=== PATIENT | male | born 1935 | race Caucasian/White ===

== ENCOUNTER 2017-08-03 11:28 | Inpatient (IN) | payer MEDICARE, OTHER ==
[2017-08-03 12:54] LABS: ADD MAN DIFF? NO
[2017-08-03] MEDS: NA PHOSPHATE/BIPHOS 133 ML ENEMA PR (12:58)
[2017-08-03 13:00] LABS: WHITE BLOOD COUNT 17.2 10^3/ul (4.8-10.8)
[2017-08-03 13:00] LABS: ABNORMAL IP MESSAGE 1; BASOPHILS % 0.2 % (0.0-2.0); EOSINOPHILS % 0.1 % (0.0-7.0); HEMOGLOBIN 15.6 g/dl (14.0-18.0); LYMPHOCYTES # 1.8 10^3/ul (0.8-2.9); LYMPHOCYTES % 10.2 % (15.0-51.0); MEAN CORPUSCULAR HEMOGLOBIN 29.8 pg (29.0-33.0); MEAN CORPUSCULAR HGB CONC 33.2 g/dl (32.0-37.0); MEAN CORPUSCULAR VOLUME 89.7 fl (82.0-101.0); MEAN PLATELET VOLUME 11.7 fl (7.4-10.4); MONOCYTE # 1.9 10^3/ul (0.3-0.9); MONOCYTES % 10.8 % (0.0-11.0); NEUTROPHIL # 13.4 10^3/ul (1.6-7.5); NEUTROPHILS % 78.2 % (39.0-77.0); PLATELET COUNT 171 10^3/UL (140-415); POSITIVE DIFF @See below; RED BLOOD COUNT 5.24 10^6/ul (4.70-6.10); RED CELL DISTRIBUTION WIDTH 12.8 % (11.5-14.5)
[2017-08-03 13:15] LABS: ALANINE AMINOTRANSFERASE 266 IU/L (13-69); ALBUMIN 4.2 g/dl (3.3-4.9); ALBUMIN/GLOBULIN RATIO 1.02; ALKALINE PHOSPHATASE 207 IU/L (42-121); ANION GAP 18 (8-16); ASPARTATE AMINO TRANSFERASE 246 IU/L (15-46); BILIRUBIN,INDIRECT 5.2 mg/dl (0-1.1); BLOOD UREA NITROGEN 26 mg/dl (7-20); CALCIUM 9.1 mg/dl (8.4-10.2); CARBON DIOXIDE 27 mmol/L (21-31); CHLORIDE 104 mmol/L (97-110); CREATININE 1.33 mg/dl (0.61-1.24); GLUCOSE 221 mg/dl (70-220); LIPASE 133 U/L (23-300); POTASSIUM 4.5 mmol/L (3.5-5.1); SODIUM 144 mmol/L (135-144); TOTAL PROTEIN 8.3 g/dl (6.1-8.1)
[2017-08-03 15:43] LABS: ADD UMIC YES; UR ASCORBIC ACID NEGATIVE (NEGATIVE); UR BACTERIA FEW /HPF (NONE SEEN); UR BILIRUBIN (Dip) 1+ mg/dL (NEGATIVE); UR BLOOD (Dip) NEGATIVE (NEGATIVE); UR CLARITY CLEAR (CLEAR); UR COLOR AMBER (YELLOW); UR GLUCOSE (Dip) 2+ mg/dL (NEGATIVE); UR KETONES (Dip) TRACE mg/dL (NEGATIVE); UR LEUKOCYTE ESTERASE (Dip) NEGATIVE Leu/ul (NEGATIVE); UR MUCUS FEW /HPF (NONE SEEN); UR NITRITE (Dip) NEGATIVE (NEGATIVE); UR RBC 1 /HPF (0-5); UR SPECIFIC GRAVITY (Dip) 1.027 (1.003-1.030); UR TOTAL PROTEIN (Dip) 1+ mg/dl (NEGATIVE); UR UROBILINOGEN (Dip) 2+ mg/dL (NEGATIVE); UR WBC 2 /HPF (0-5)
[2017-08-03] MEDS: MINERAL OIL 133 ML ENEMA PR (16:14)
[2017-08-03] MEDS: CEFTRIAXONE 1 GM/50 ML (PMX) 50 ML IVPB (17:41)
[2017-08-03] MEDS: metroNIDAZOLE 500 MG/NS (PMX) 100 ML IVPB ×2 (17:47→18:23)
[2017-08-03] MEDS ORDERED: ACETAMINOPHEN 325 MG TAB PO (18:30)
[2017-08-03] MEDS ORDERED: ONDANSETRON 4 MG INJ IV (18:30)
[2017-08-03] MEDS ORDERED: NACL 0.9% 3 ML SYG IV (18:30)
[2017-08-03] MEDS ORDERED: DEXTROSE 50% 50 ML SYRINGE IV ×2 (19:00)
[2017-08-03] MEDS ORDERED: hydrALAzine 20 MG INJ IV (19:00)
[2017-08-03] MEDS ORDERED: GLUCAGON 1 MG INJ IM (19:00)
[2017-08-03] MEDS ORDERED: GLUCOSE GEL 15 GRAM TUBE BUCCAL (19:00)
[2017-08-03] MEDS ORDERED: INSULIN ASPART [NOVOLOG] 3 ML PEN SC (19:00)
[2017-08-03] MEDS ORDERED: GLUCOSE GEL 15 GRAM TUBE PO ×2 (19:00)
[2017-08-03 19:15] LABS: THYROID STIMULATING HORMONE 0.324 MIU/L (0.465-4.680)
[2017-08-03 19:19] LABS: FREE T4 (FREE THYROXINE) 2.31 ng/dl (0.85-1.93)
[2017-08-03] MEDS: SOD CHLORIDE 0.9% 1,000 ML IV (19:51)
[2017-08-03] MEDS ORDERED: ATORVASTATIN 40 MG TAB PO (21:00)
[2017-08-03] MEDS: Insulin NOVOLOG SS MILD Algorithm (NPO/TPN/ENTERAL FEEDS) SC (21:00)
[2017-08-03] MEDS: INSULIN GLARGINE [LANtus] 3 ML PEN SC ×3 (22:24→23:35)
[2017-08-03] MEDS: PIPER-TAZO 3.375 GM IV (PMX) 100 ML IVPB (22:44)
[2017-08-04] MEDS: Insulin NOVOLOG SS MILD Algorithm (NPO/TPN/ENTERAL FEEDS) SC ×6 (01:00→20:51)
[2017-08-04] MEDS: PIPER-TAZO 3.375 GM IV (PMX) 100 ML IVPB ×3 (05:07→21:44)
[2017-08-04 06:00] LABS: ADD MAN DIFF? NO
[2017-08-04 06:17] LABS: WHITE BLOOD COUNT 13.5 10^3/ul (4.8-10.8)
[2017-08-04 06:17] LABS: ABNORMAL IP MESSAGE 1; BASOPHILS % 0.1 % (0.0-2.0); EOSINOPHILS % 0.3 % (0.0-7.0); HEMATOCRIT 43.6 % (42.0-52.0); HEMOGLOBIN 14.7 g/dl (14.0-18.0); LYMPHOCYTES # 1.7 10^3/ul (0.8-2.9); LYMPHOCYTES % 12.6 % (15.0-51.0); MEAN CORPUSCULAR HEMOGLOBIN 30.1 pg (29.0-33.0); MEAN CORPUSCULAR HGB CONC 33.7 g/dl (32.0-37.0); MEAN CORPUSCULAR VOLUME 89.2 fl (82.0-101.0); MEAN PLATELET VOLUME 11.7 fl (7.4-10.4); MONOCYTE # 1.7 10^3/ul (0.3-0.9); MONOCYTES % 12.7 % (0.0-11.0); NEUTROPHIL # 9.9 10^3/ul (1.6-7.5); NEUTROPHILS % 73.4 % (39.0-77.0); PLATELET COUNT 154 10^3/UL (140-415); POSITIVE DIFF @See below; RED BLOOD COUNT 4.89 10^6/ul (4.70-6.10); RED CELL DISTRIBUTION WIDTH 12.8 % (11.5-14.5)
[2017-08-04 06:27] LABS: LACTIC ACID 1.2 mmol/L (0.5-2.0)
[2017-08-04 06:27] LABS: INR 1.33; PROTIME 16.7 Sec (11.9-14.9); PT RATIO 1.3
[2017-08-04 06:28] LABS: PARTIAL THROMBOPLASTIN TIME 35.1 Sec (25.0-35.0)
[2017-08-04 06:43] LABS: ALANINE AMINOTRANSFERASE 207 IU/L (13-69); ALBUMIN 3.3 g/dl (3.3-4.9); ALBUMIN/GLOBULIN RATIO 1.03; ALKALINE PHOSPHATASE 179 IU/L (42-121); ANION GAP 17 (8-16); ASPARTATE AMINO TRANSFERASE 136 IU/L (15-46); BLOOD UREA NITROGEN 22 mg/dl (7-20); CALCIUM 8.4 mg/dl (8.4-10.2); CARBON DIOXIDE 25 mmol/L (21-31); CHLORIDE 111 mmol/L (97-110); CREATININE 1.37 mg/dl (0.61-1.24); GLUCOSE 111 mg/dl (70-220); POTASSIUM 3.7 mmol/L (3.5-5.1); SODIUM 149 mmol/L (135-144); TOTAL PROTEIN 6.5 g/dl (6.1-8.1)
[2017-08-04 06:44] LABS: CHOL/HDL RATIO 2.2 RATIO; CHOLESTEROL 105 mg/dl (100-200); HDL CHOLESTEROL 46 mg/dl (31-75); LDL CHOLESTEROL,CALCULATED 46 mg/dl; MAGNESIUM 2.1 mg/dl (1.7-2.5); TRIGLYCERIDES 67 mg/dl (0-149)
[2017-08-04] MEDS: POTASSIUM CHLORIDE (SR) 10 MEQ TAB PO (09:11)
[2017-08-04] MEDS: ATENOLOL 50 MG TAB PO (09:12)
[2017-08-04] MEDS: FUROSEMIDE 40 MG TAB PO (09:12)
[2017-08-04] MEDS: MEMANTINE 10 MG TAB PO (09:12)
[2017-08-04] MEDS: TAMSULOSIN (SR) 0.4 MG CAP PO (09:12)
[2017-08-04] MEDS: SOD CHLORIDE 0.9% 1,000 ML IV ×2 (11:09→14:11)
[2017-08-04] MEDS: INDOMETHACIN 50 MG SUPP PR (15:30)
[2017-08-04] MEDS: INSULIN GLARGINE [LANtus] 3 ML PEN SC (20:51)
[2017-08-05] MEDS: Insulin NOVOLOG SS MILD Algorithm (NPO/TPN/ENTERAL FEEDS) SC ×6 (01:00→20:09)
[2017-08-05] MEDS: PIPER-TAZO 3.375 GM IV (PMX) 100 ML IVPB ×3 (05:31→20:13)
[2017-08-05] MEDS ORDERED: METOCLOPRAMIDE 10 MG INJ (07:00)
[2017-08-05] MEDS: SOD CHLORIDE 0.9% 1,000 ML IV ×2 (07:47→19:25)
[2017-08-05] MEDS: POTASSIUM CHLORIDE (SR) 10 MEQ TAB PO (08:09)
[2017-08-05] MEDS: TAMSULOSIN (SR) 0.4 MG CAP PO (08:09)
[2017-08-05] MEDS: FUROSEMIDE 40 MG TAB PO (08:10)
[2017-08-05] MEDS: ATENOLOL 50 MG TAB PO (08:10)
[2017-08-05] MEDS: MEMANTINE 10 MG TAB PO (08:10)
[2017-08-05] MEDS: INDOMETHACIN 50 MG SUPP PR (12:00)
[2017-08-05] MEDS ORDERED: MIDAZOLAM 1 MG/ML 2 ML INJ (12:12)
[2017-08-05] MEDS ORDERED: FENTAnyl 50 MCG/ML VIAL (12:12)
[2017-08-05] MEDS ORDERED: PROPOFOL 0 ML (12:12)
[2017-08-05] MEDS ORDERED: ONDANSETRON 4 MG INJ (12:13)
[2017-08-05] MEDS ORDERED: ROCURONIUM 50 MG INJ ×2 (12:16→12:54)
[2017-08-05] MEDS ORDERED: ETOMIDATE 20 MG INJ (12:54)
[2017-08-05] MEDS ORDERED: NEOSTIGMINE 3 MG/3 ML SYRINGE (12:54)
[2017-08-05] MEDS ORDERED: EPHEDrine SULFATE 50 MG/5 ML SYG (12:55)
[2017-08-05] MEDS ORDERED: ONDANSETRON 4 MG INJ IV (13:30)
[2017-08-05 16:43] LABS: ALANINE AMINOTRANSFERASE 193 IU/L (13-69); ALBUMIN 3.8 g/dl (3.3-4.9); ALBUMIN/GLOBULIN RATIO 0.97; ALKALINE PHOSPHATASE 289 IU/L (42-121); ANION GAP 21 (8-16); ASPARTATE AMINO TRANSFERASE 145 IU/L (15-46); BILIRUBIN,INDIRECT 2.4 mg/dl (0-1.1); BILIRUBIN,TOTAL 2.4 mg/dl (0.2-1.3); BLOOD UREA NITROGEN 24 mg/dl (7-20); CALCIUM 8.7 mg/dl (8.4-10.2); CARBON DIOXIDE 23 mmol/L (21-31); CHLORIDE 111 mmol/L (97-110); CREATININE 1.44 mg/dl (0.61-1.24); GLUCOSE 149 mg/dl (70-220); POTASSIUM 4.5 mmol/L (3.5-5.1); SODIUM 150 mmol/L (135-144); TOTAL PROTEIN 7.7 g/dl (6.1-8.1)
[2017-08-05] MEDS: INSULIN GLARGINE [LANtus] 3 ML PEN SC (20:08)
[2017-08-05] MEDS: DEXTROSE 5% 1,000 ML IV (22:44)
[2017-08-06] MEDS: ACCU-CHEK XX (02:00)
[2017-08-06 05:49] LABS: ADD MAN DIFF? NO
[2017-08-06 05:57] LABS: WHITE BLOOD COUNT 9.1 10^3/ul (4.8-10.8)
[2017-08-06 05:57] LABS: BASOPHILS % 0.2 % (0.0-2.0); EOSINOPHILS # 0.1 10^3/ul (0.0-0.5); EOSINOPHILS % 0.9 % (0.0-7.0); HEMATOCRIT 40.2 % (42.0-52.0); HEMOGLOBIN 13.4 g/dl (14.0-18.0); LYMPHOCYTES # 1.6 10^3/ul (0.8-2.9); LYMPHOCYTES % 17.5 % (15.0-51.0); MEAN CORPUSCULAR HEMOGLOBIN 29.8 pg (29.0-33.0); MEAN CORPUSCULAR HGB CONC 33.3 g/dl (32.0-37.0); MEAN CORPUSCULAR VOLUME 89.5 fl (82.0-101.0); MEAN PLATELET VOLUME 11.8 fl (7.4-10.4); MONOCYTE # 1.3 10^3/ul (0.3-0.9); MONOCYTES % 13.9 % (0.0-11.0); NEUTROPHIL # 6.1 10^3/ul (1.6-7.5); NEUTROPHILS % 67.1 % (39.0-77.0); PLATELET COUNT 159 10^3/UL (140-415); RED BLOOD COUNT 4.49 10^6/ul (4.70-6.10); RED CELL DISTRIBUTION WIDTH 12.7 % (11.5-14.5)
[2017-08-06 06:09] LABS: LIPASE 98 U/L (23-300)
[2017-08-06] MEDS: PIPER-TAZO 3.375 GM IV (PMX) 100 ML IVPB ×3 (06:42→21:58)
[2017-08-06 06:44] LABS: ANION GAP 12 (8-16); BLOOD UREA NITROGEN 18 mg/dl (7-20); CALCIUM 7.9 mg/dl (8.4-10.2); CARBON DIOXIDE 27 mmol/L (21-31); CHLORIDE 111 mmol/L (97-110); CREATININE 1.14 mg/dl (0.61-1.24); GLUCOSE 152 mg/dl (70-220); POTASSIUM 3.7 mmol/L (3.5-5.1); SODIUM 146 mmol/L (135-144)
[2017-08-06] MEDS: INSULIN ASPART [NOVOLOG] 3 ML PEN SC ×4 (07:54→20:41)
[2017-08-06] MEDS: FUROSEMIDE 40 MG TAB PO (08:56)
[2017-08-06] MEDS: ATENOLOL 50 MG TAB PO (08:57)
[2017-08-06] MEDS: POTASSIUM CHLORIDE (SR) 10 MEQ TAB PO (09:09)
[2017-08-06] MEDS: TAMSULOSIN (SR) 0.4 MG CAP PO (09:09)
[2017-08-06] MEDS: MEMANTINE 10 MG TAB PO (09:09)
[2017-08-06] MEDS: DEXTROSE 5% 1,000 ML IV (13:45)
[2017-08-06 19:00] LABS: TROPONIN-I < 0.012 ng/ml (0.00-0.12)
[2017-08-06] MEDS: INSULIN GLARGINE [LANtus] 3 ML PEN SC (20:38)
[2017-08-07] MEDS: ACCU-CHEK XX (02:00)
[2017-08-07 02:05] LABS: TROPONIN-I 0.014 ng/ml (0.00-0.12)
[2017-08-07] MEDS: PIPER-TAZO 3.375 GM IV (PMX) 100 ML IVPB ×3 (06:10→22:05)
[2017-08-07 07:14] LABS: ADD MAN DIFF? NO
[2017-08-07 07:19] LABS: BASOPHILS % 0.2 % (0.0-2.0); EOSINOPHILS # 0.1 10^3/ul (0.0-0.5); EOSINOPHILS % 1.1 % (0.0-7.0); HEMATOCRIT 41.9 % (42.0-52.0); HEMOGLOBIN 14.2 g/dl (14.0-18.0); LYMPHOCYTES # 2.3 10^3/ul (0.8-2.9); LYMPHOCYTES % 25.7 % (15.0-51.0); MEAN CORPUSCULAR HGB CONC 33.9 g/dl (32.0-37.0); MEAN CORPUSCULAR VOLUME 88.6 fl (82.0-101.0); MEAN PLATELET VOLUME 11.7 fl (7.4-10.4); MONOCYTE # 1.2 10^3/ul (0.3-0.9); MONOCYTES % 13.5 % (0.0-11.0); NEUTROPHIL # 5.2 10^3/ul (1.6-7.5); NEUTROPHILS % 59.2 % (39.0-77.0); PLATELET COUNT 168 10^3/UL (140-415); RED BLOOD COUNT 4.73 10^6/ul (4.70-6.10); RED CELL DISTRIBUTION WIDTH 12.3 % (11.5-14.5)
[2017-08-07 07:19] LABS: WHITE BLOOD COUNT 8.7 10^3/ul (4.8-10.8)
[2017-08-07 07:37] LABS: ALANINE AMINOTRANSFERASE 109 IU/L (13-69); ALBUMIN 3.2 g/dl (3.3-4.9); ALKALINE PHOSPHATASE 209 IU/L (42-121); ASPARTATE AMINO TRANSFERASE 49 IU/L (15-46); TOTAL PROTEIN 6.6 g/dl (6.1-8.1)
[2017-08-07 07:42] LABS: ANION GAP 15 (8-16); BLOOD UREA NITROGEN 10 mg/dl (7-20); CALCIUM 8.4 mg/dl (8.4-10.2); CARBON DIOXIDE 26 mmol/L (21-31); CHLORIDE 107 mmol/L (97-110); CREATININE 1.16 mg/dl (0.61-1.24); GLUCOSE 219 mg/dl (70-220); MAGNESIUM 1.9 mg/dl (1.7-2.5); PHOSPHORUS 2.9 mg/dl (2.5-4.9); POTASSIUM 3.7 mmol/L (3.5-5.1); SODIUM 144 mmol/L (135-144)
[2017-08-07 07:48] LABS: TROPONIN-I 0.016 ng/ml (0.00-0.12)
[2017-08-07] MEDS: DEXTROSE 5% 1,000 ML IV (08:26)
[2017-08-07] MEDS: INSULIN ASPART [NOVOLOG] 3 ML PEN SC ×4 (08:31→20:25)
[2017-08-07] MEDS: TAMSULOSIN (SR) 0.4 MG CAP PO (09:16)
[2017-08-07] MEDS: MEMANTINE 10 MG TAB PO (09:16)
[2017-08-07] MEDS: ATENOLOL 50 MG TAB PO (09:16)
[2017-08-07] MEDS: POTASSIUM CHLORIDE (SR) 10 MEQ TAB PO (09:16)
[2017-08-07] MEDS: FUROSEMIDE 40 MG TAB PO (09:16)
[2017-08-07] MEDS: REGADENOSON 0.4 MG/5 ML SYG (11:52)
[2017-08-07] MEDS: INSULIN GLARGINE [LANtus] 3 ML PEN SC (20:25)
[2017-08-08] MEDS: ACCU-CHEK XX (01:25)
[2017-08-08] MEDS: PIPER-TAZO 3.375 GM IV (PMX) 100 ML IVPB ×3 (05:41→21:47)
[2017-08-08 06:29] LABS: ADD MAN DIFF? NO
[2017-08-08 06:33] LABS: BASOPHILS % 0.3 % (0.0-2.0); EOSINOPHILS # 0.1 10^3/ul (0.0-0.5); EOSINOPHILS % 1.7 % (0.0-7.0); HEMATOCRIT 41.8 % (42.0-52.0); HEMOGLOBIN 13.9 g/dl (14.0-18.0); LYMPHOCYTES % 25.7 % (15.0-51.0); MEAN CORPUSCULAR HEMOGLOBIN 29.3 pg (29.0-33.0); MEAN CORPUSCULAR HGB CONC 33.3 g/dl (32.0-37.0); MEAN CORPUSCULAR VOLUME 88.2 fl (82.0-101.0); MEAN PLATELET VOLUME 11.5 fl (7.4-10.4); MONOCYTE # 1.1 10^3/ul (0.3-0.9); NEUTROPHIL # 4.3 10^3/ul (1.6-7.5); PLATELET COUNT 176 10^3/UL (140-415); RED BLOOD COUNT 4.74 10^6/ul (4.70-6.10)
[2017-08-08 06:33] LABS: WHITE BLOOD COUNT 7.6 10^3/ul (4.8-10.8)
[2017-08-08 06:58] LABS: MAGNESIUM 1.7 mg/dl (1.7-2.5)
[2017-08-08 07:00] LABS: ALANINE AMINOTRANSFERASE 96 IU/L (13-69); ALBUMIN 3.2 g/dl (3.3-4.9); ALBUMIN/GLOBULIN RATIO 0.96; ALKALINE PHOSPHATASE 176 IU/L (42-121); ANION GAP 12 (8-16); ASPARTATE AMINO TRANSFERASE 49 IU/L (15-46); BILIRUBIN,INDIRECT 1.3 mg/dl (0-1.1); BILIRUBIN,TOTAL 1.3 mg/dl (0.2-1.3); BLOOD UREA NITROGEN 12 mg/dl (7-20); CALCIUM 8.4 mg/dl (8.4-10.2); CARBON DIOXIDE 32 mmol/L (21-31); CHLORIDE 108 mmol/L (97-110); CREATININE 1.44 mg/dl (0.61-1.24); GLUCOSE 181 mg/dl (70-220); POTASSIUM 3.8 mmol/L (3.5-5.1); SODIUM 148 mmol/L (135-144); TOTAL PROTEIN 6.5 g/dl (6.1-8.1)
[2017-08-08] MEDS: TAMSULOSIN (SR) 0.4 MG CAP PO (08:07)
[2017-08-08] MEDS: INSULIN ASPART [NOVOLOG] 3 ML PEN SC ×5 (08:07→20:22)
[2017-08-08] MEDS: FUROSEMIDE 40 MG TAB PO (08:07)
[2017-08-08] MEDS: MEMANTINE 10 MG TAB PO (08:07)
[2017-08-08] MEDS: POTASSIUM CHLORIDE (SR) 10 MEQ TAB PO (08:07)
[2017-08-08] MEDS: ATENOLOL 50 MG TAB PO (08:08)
[2017-08-08] MEDS: INSULIN GLARGINE [LANtus] 3 ML PEN SC (20:21)
[2017-08-09] MEDS: ACCU-CHEK XX (02:00)
[2017-08-09 06:06] LABS: ADD MAN DIFF? NO
[2017-08-09 06:07] LABS: BASOPHILS % 0.3 % (0.0-2.0); EOSINOPHILS # 0.2 10^3/ul (0.0-0.5); EOSINOPHILS % 1.8 % (0.0-7.0); HEMATOCRIT 38.2 % (42.0-52.0); HEMOGLOBIN 12.7 g/dl (14.0-18.0); LYMPHOCYTES # 2.1 10^3/ul (0.8-2.9); LYMPHOCYTES % 21.5 % (15.0-51.0); MEAN CORPUSCULAR HEMOGLOBIN 29.6 pg (29.0-33.0); MEAN CORPUSCULAR HGB CONC 33.2 g/dl (32.0-37.0); MEAN PLATELET VOLUME 11.4 fl (7.4-10.4); MONOCYTE # 1.2 10^3/ul (0.3-0.9); MONOCYTES % 12.1 % (0.0-11.0); NEUTROPHIL # 6.3 10^3/ul (1.6-7.5); PLATELET COUNT 179 10^3/UL (140-415); RED BLOOD COUNT 4.29 10^6/ul (4.70-6.10); RED CELL DISTRIBUTION WIDTH 12.4 % (11.5-14.5)
[2017-08-09 06:07] LABS: WHITE BLOOD COUNT 9.8 10^3/ul (4.8-10.8)
[2017-08-09] MEDS: PIPER-TAZO 3.375 GM IV (PMX) 100 ML IVPB ×3 (06:07→21:45)
[2017-08-09 06:35] LABS: MAGNESIUM 1.7 mg/dl (1.7-2.5)
[2017-08-09 06:50] LABS: ALANINE AMINOTRANSFERASE 83 IU/L (13-69); ALBUMIN 3.1 g/dl (3.3-4.9); ALBUMIN/GLOBULIN RATIO 0.91; ALKALINE PHOSPHATASE 149 IU/L (42-121); ANION GAP 12 (8-16); ASPARTATE AMINO TRANSFERASE 36 IU/L (15-46); BILIRUBIN,INDIRECT 0.8 mg/dl (0-1.1); BILIRUBIN,TOTAL 0.8 mg/dl (0.2-1.3); BLOOD UREA NITROGEN 15 mg/dl (7-20); CALCIUM 8.4 mg/dl (8.4-10.2); CARBON DIOXIDE 29 mmol/L (21-31); CHLORIDE 109 mmol/L (97-110); CREATININE 1.36 mg/dl (0.61-1.24); GLUCOSE 178 mg/dl (70-220); POTASSIUM 3.8 mmol/L (3.5-5.1); SODIUM 146 mmol/L (135-144); TOTAL PROTEIN 6.5 g/dl (6.1-8.1)
[2017-08-09] MEDS: FUROSEMIDE 40 MG TAB PO (08:04)
[2017-08-09] MEDS: MEMANTINE 10 MG TAB PO (08:04)
[2017-08-09] MEDS: TAMSULOSIN (SR) 0.4 MG CAP PO (08:05)
[2017-08-09] MEDS: POTASSIUM CHLORIDE (SR) 10 MEQ TAB PO (08:05)
[2017-08-09] MEDS: ATENOLOL 50 MG TAB PO (08:05)
[2017-08-09] MEDS: INSULIN ASPART [NOVOLOG] 3 ML PEN SC ×7 (08:06→20:27)
[2017-08-09] MEDS: INSULIN GLARGINE [LANtus] 3 ML PEN SC (20:27)
[2017-08-10] MEDS: ACCU-CHEK XX (02:00)
[2017-08-10] MEDS: PIPER-TAZO 3.375 GM IV (PMX) 100 ML IVPB ×3 (05:34→21:02)
[2017-08-10 06:51] LABS: ALANINE AMINOTRANSFERASE 70 IU/L (13-69); ALBUMIN 3.6 g/dl (3.3-4.9); ALBUMIN/GLOBULIN RATIO 1.02; ALKALINE PHOSPHATASE 142 IU/L (42-121); ANION GAP 14 (8-16); ASPARTATE AMINO TRANSFERASE 37 IU/L (15-46); BILIRUBIN,INDIRECT 0.9 mg/dl (0-1.1); BILIRUBIN,TOTAL 0.9 mg/dl (0.2-1.3); BLOOD UREA NITROGEN 15 mg/dl (7-20); CALCIUM 8.5 mg/dl (8.4-10.2); CARBON DIOXIDE 29 mmol/L (21-31); CHLORIDE 108 mmol/L (97-110); CREATININE 1.37 mg/dl (0.61-1.24); GLUCOSE 157 mg/dl (70-220); POTASSIUM 4.3 mmol/L (3.5-5.1); SODIUM 147 mmol/L (135-144); TOTAL PROTEIN 7.1 g/dl (6.1-8.1)
[2017-08-10 08:01] LABS: MAGNESIUM 1.7 mg/dl (1.7-2.5)
[2017-08-10] MEDS: INSULIN ASPART [NOVOLOG] 3 ML PEN SC ×7 (08:03→21:00)
[2017-08-10] MEDS: TAMSULOSIN (SR) 0.4 MG CAP PO (08:05)
[2017-08-10] MEDS: POTASSIUM CHLORIDE (SR) 10 MEQ TAB PO (08:05)
[2017-08-10] MEDS: MEMANTINE 10 MG TAB PO (08:05)
[2017-08-10] MEDS: ATENOLOL 50 MG TAB PO (08:06)
[2017-08-10] MEDS: FUROSEMIDE 40 MG TAB PO (08:06)
[2017-08-10] MEDS: INSULIN GLARGINE [LANtus] 3 ML PEN SC (21:02)
[2017-08-11] MEDS: ACCU-CHEK XX (01:59)
[2017-08-11] MEDS: PIPER-TAZO 3.375 GM IV (PMX) 100 ML IVPB ×3 (05:46→21:24)
[2017-08-11 06:25] LABS: ADD MAN DIFF? NO
[2017-08-11 06:26] LABS: BASOPHILS % 0.2 % (0.0-2.0); EOSINOPHILS # 0.2 10^3/ul (0.0-0.5); EOSINOPHILS % 2.9 % (0.0-7.0); HEMATOCRIT 41.3 % (42.0-52.0); HEMOGLOBIN 13.9 g/dl (14.0-18.0); LYMPHOCYTES % 24.5 % (15.0-51.0); MEAN CORPUSCULAR HGB CONC 33.7 g/dl (32.0-37.0); MEAN PLATELET VOLUME 11.2 fl (7.4-10.4); MONOCYTES % 12.1 % (0.0-11.0); NEUTROPHIL # 4.8 10^3/ul (1.6-7.5); NEUTROPHILS % 59.9 % (39.0-77.0); PLATELET COUNT 216 10^3/UL (140-415); RED BLOOD COUNT 4.64 10^6/ul (4.70-6.10); RED CELL DISTRIBUTION WIDTH 12.2 % (11.5-14.5)
[2017-08-11] MEDS: DEXTROSE 5%-0.45% NACL 1,000 ML IV ×2 (06:26→18:41)
[2017-08-11 06:53] LABS: ANION GAP 13 (8-16); BLOOD UREA NITROGEN 16 mg/dl (7-20); CALCIUM 8.9 mg/dl (8.4-10.2); CARBON DIOXIDE 31 mmol/L (21-31); CHLORIDE 107 mmol/L (97-110); CREATININE 1.23 mg/dl (0.61-1.24); GLUCOSE 106 mg/dl (70-220); MAGNESIUM 1.7 mg/dl (1.7-2.5); PHOSPHORUS 4.2 mg/dl (2.5-4.9); POTASSIUM 3.8 mmol/L (3.5-5.1); SODIUM 147 mmol/L (135-144)
[2017-08-11] MEDS: INSULIN ASPART [NOVOLOG] 3 ML PEN SC ×7 (08:12→21:37)
[2017-08-11] MEDS: FUROSEMIDE 40 MG TAB PO (09:00)
[2017-08-11] MEDS: TAMSULOSIN (SR) 0.4 MG CAP PO (09:00)
[2017-08-11] MEDS: ATENOLOL 50 MG TAB PO (09:00)
[2017-08-11] MEDS: MEMANTINE 10 MG TAB PO (09:00)
[2017-08-11] MEDS: POTASSIUM CHLORIDE (SR) 10 MEQ TAB PO (09:00)
[2017-08-11] MEDS ORDERED: ETOMIDATE 20 MG INJ (12:03)
[2017-08-11] MEDS ORDERED: ROCURONIUM 50 MG INJ (12:03)
[2017-08-11] MEDS ORDERED: MIDAZOLAM 1 MG/ML 2 ML INJ (12:04)
[2017-08-11] MEDS ORDERED: LIDOCAINE 1% (MDV) 20 ML INJ (12:04)
[2017-08-11] MEDS ORDERED: ONDANSETRON 4 MG INJ (12:43)
[2017-08-11] MEDS ORDERED: METOCLOPRAMIDE 10 MG INJ (12:43)
[2017-08-11] MEDS ORDERED: PHENYLephrine (100 MCG/ML) 5ML SYG (12:46)
[2017-08-11] MEDS ORDERED: LABETALOL HCL 20MG INJ IV (13:00)
[2017-08-11] MEDS ORDERED: MEPERIDINE 25 MG INJ IV (13:00)
[2017-08-11] MEDS ORDERED: hydrALAzine 20 MG INJ IV (13:00)
[2017-08-11] MEDS ORDERED: ONDANSETRON 4 MG INJ IV (13:00)
[2017-08-11] MEDS ORDERED: HYDROmorphONE (0.2 MG/ML) 10ML SYG IV ×2 (13:00)
[2017-08-11] MEDS: LIDOCAINE 1% (MPF) 30 ML INJ (13:45)
[2017-08-11] MEDS: BUPIVACAINE 0.25%/EPI (MDV) 50 ML VIAL INJ (13:45)
[2017-08-11] MEDS ORDERED: ROPIVACAINE 0.2% 20 ML VIAL (13:55)
[2017-08-11] MEDS ORDERED: SUGAMMADEX SODIUM 200 MG/2 ML VIAL IV (13:58)
[2017-08-11] MEDS ORDERED: ESMOLOL 10 ML (14:04)
[2017-08-11] MEDS: morphine 2 MG INJ IV (14:48)
[2017-08-11] MEDS: ONDANSETRON 4 MG INJ IV (15:22)
[2017-08-11] MEDS: HYDROCODONE/APAP (5/325) TAB PO (17:41)
[2017-08-11] MEDS: INSULIN GLARGINE [LANtus] 3 ML PEN SC (21:37)
[2017-08-12] MEDS: ACCU-CHEK XX (01:13)
[2017-08-12] MEDS: PIPER-TAZO 3.375 GM IV (PMX) 100 ML IVPB (05:14)
[2017-08-12 06:21] LABS: ADD MAN DIFF? NO
[2017-08-12 06:43] LABS: WHITE BLOOD COUNT 9.6 10^3/ul (4.8-10.8)
[2017-08-12 06:43] LABS: BASOPHILS % 0.2 % (0.0-2.0); EOSINOPHILS # 0.1 10^3/ul (0.0-0.5); EOSINOPHILS % 0.7 % (0.0-7.0); HEMATOCRIT 37.9 % (42.0-52.0); HEMOGLOBIN 12.7 g/dl (14.0-18.0); LYMPHOCYTES # 1.1 10^3/ul (0.8-2.9); LYMPHOCYTES % 11.5 % (15.0-51.0); MEAN CORPUSCULAR HEMOGLOBIN 30.1 pg (29.0-33.0); MEAN CORPUSCULAR HGB CONC 33.5 g/dl (32.0-37.0); MEAN CORPUSCULAR VOLUME 89.8 fl (82.0-101.0); MEAN PLATELET VOLUME 11.2 fl (7.4-10.4); MONOCYTE # 1.2 10^3/ul (0.3-0.9); MONOCYTES % 12.2 % (0.0-11.0); NEUTROPHIL # 7.2 10^3/ul (1.6-7.5); PLATELET COUNT 192 10^3/UL (140-415); RED BLOOD COUNT 4.22 10^6/ul (4.70-6.10); RED CELL DISTRIBUTION WIDTH 12.4 % (11.5-14.5)
[2017-08-12 07:13] LABS: ALANINE AMINOTRANSFERASE 68 IU/L (13-69); ALBUMIN 3.2 g/dl (3.3-4.9); ALBUMIN/GLOBULIN RATIO 0.96; ALKALINE PHOSPHATASE 113 IU/L (42-121); ANION GAP 11 (8-16); ASPARTATE AMINO TRANSFERASE 53 IU/L (15-46); BILIRUBIN,INDIRECT 1.2 mg/dl (0-1.1); BILIRUBIN,TOTAL 1.2 mg/dl (0.2-1.3); BLOOD UREA NITROGEN 12 mg/dl (7-20); CALCIUM 8.3 mg/dl (8.4-10.2); CARBON DIOXIDE 30 mmol/L (21-31); CHLORIDE 108 mmol/L (97-110); CREATININE 1.29 mg/dl (0.61-1.24); GLUCOSE 193 mg/dl (70-220); MAGNESIUM 1.6 mg/dl (1.7-2.5); POTASSIUM 4.1 mmol/L (3.5-5.1); SODIUM 145 mmol/L (135-144); TOTAL PROTEIN 6.5 g/dl (6.1-8.1)
[2017-08-12] MEDS: INSULIN ASPART [NOVOLOG] 3 ML PEN SC ×7 (08:05→21:37)
[2017-08-12] MEDS: HYDROCODONE/APAP (5/325) TAB PO ×4 (08:08→23:52)
[2017-08-12] MEDS: TAMSULOSIN (SR) 0.4 MG CAP PO (09:00)
[2017-08-12] MEDS: ATENOLOL 50 MG TAB PO ×2 (09:00→09:19)
[2017-08-12] MEDS: FUROSEMIDE 40 MG TAB PO ×2 (09:00→09:18)
[2017-08-12] MEDS: POTASSIUM CHLORIDE (SR) 10 MEQ TAB PO ×2 (09:00→09:17)
[2017-08-12] MEDS: MEMANTINE 10 MG TAB PO ×2 (09:00→09:19)
[2017-08-12] MEDS: DEXTROSE 5%-0.45% NACL 1,000 ML IV (09:09)
[2017-08-12] MEDS ORDERED: POLYETHYLENE GLYCOL 17 GM PACKET PO (10:00)
[2017-08-12] MEDS: MAGNESIUM SULFATE 2 GM/50 ML 50 ML IVPB (11:19)
[2017-08-12 14:14] LABS: ALANINE AMINOTRANSFERASE 70 IU/L (13-69); ALBUMIN 3.8 g/dl (3.3-4.9); ALBUMIN/GLOBULIN RATIO 1.08; ALKALINE PHOSPHATASE 126 IU/L (42-121); ANION GAP 15 (8-16); ASPARTATE AMINO TRANSFERASE 59 IU/L (15-46); BILIRUBIN,INDIRECT 1.3 mg/dl (0-1.1); BILIRUBIN,TOTAL 1.3 mg/dl (0.2-1.3); BLOOD UREA NITROGEN 13 mg/dl (7-20); CALCIUM 8.1 mg/dl (8.4-10.2); CARBON DIOXIDE 26 mmol/L (21-31); CHLORIDE 107 mmol/L (97-110); CREATININE 1.27 mg/dl (0.61-1.24); GLUCOSE 144 mg/dl (70-220); POTASSIUM 3.9 mmol/L (3.5-5.1); SODIUM 144 mmol/L (135-144); TOTAL PROTEIN 7.3 g/dl (6.1-8.1)
[2017-08-12] MEDS ORDERED: morphine LIQ (10 MG/5 ML) CUP PO (16:00)
[2017-08-12] MEDS: INSULIN GLARGINE [LANtus] 3 ML PEN SC (21:37)
[2017-08-13 06:43] LABS: MAGNESIUM 1.9 mg/dl (1.7-2.5)
[2017-08-13 06:51] LABS: ALANINE AMINOTRANSFERASE 56 IU/L (13-69); ALBUMIN 3.4 g/dl (3.3-4.9); ALBUMIN/GLOBULIN RATIO 0.97; ALKALINE PHOSPHATASE 108 IU/L (42-121); ANION GAP 14 (8-16); ASPARTATE AMINO TRANSFERASE 40 IU/L (15-46); BILIRUBIN,INDIRECT 1.1 mg/dl (0-1.1); BILIRUBIN,TOTAL 1.1 mg/dl (0.2-1.3); BLOOD UREA NITROGEN 13 mg/dl (7-20); CALCIUM 8.3 mg/dl (8.4-10.2); CARBON DIOXIDE 26 mmol/L (21-31); CHLORIDE 109 mmol/L (97-110); CREATININE 1.15 mg/dl (0.61-1.24); GLUCOSE 127 mg/dl (70-220); POTASSIUM 3.7 mmol/L (3.5-5.1); SODIUM 145 mmol/L (135-144); TOTAL PROTEIN 6.9 g/dl (6.1-8.1)
[2017-08-13] MEDS: INSULIN ASPART [NOVOLOG] 3 ML PEN SC ×2 (07:56→07:57)
[2017-08-13] MEDS: TAMSULOSIN (SR) 0.4 MG CAP PO (08:00)
[2017-08-13] MEDS: POTASSIUM CHLORIDE (SR) 10 MEQ TAB PO (08:00)
[2017-08-13] MEDS: FUROSEMIDE 40 MG TAB PO (08:01)
[2017-08-13] MEDS: MEMANTINE 10 MG TAB PO (08:01)
[2017-08-13] MEDS: ATENOLOL 50 MG TAB PO (08:02)
[2017-08-13] MEDS: HYDROCODONE/APAP (5/325) TAB PO (11:26)
== END 2017-08-13 12:15 | disposition home health service (06) | DRG 418 ==
LOC: MS2 08-11 15:15 → E/R 11:28 → MS2 18:19
PROVIDERS: Internal Medicine
PROC: 0F7C8ZZ Dilation of Ampulla of Vater, Via Natural or Artificial Opening Endoscopic (ICD-10-PCS; principal; 2017-08-05 12:11)
PROC: 0FT44ZZ Resection of Gallbladder, Percutaneous Endoscopic Approach (ICD-10-PCS; 2017-08-05 12:11)
DX: K80.01 Calculus of gallbladder with acute cholecystitis with obstruction (principal); N17.9 Acute kidney failure, unspecified; I25.810 Atherosclerosis of coronary artery bypass graft(s) without angina pectoris; E66.01 Morbid (severe) obesity due to excess calories; Z68.34 Body mass index [BMI] 34.0-34.9, adult; E11.9 Type 2 diabetes mellitus without complications; I10 Essential (primary) hypertension; E80.6 Other disorders of bilirubin metabolism; E78.5 Hyperlipidemia, unspecified; N40.0 Benign prostatic hyperplasia without lower urinary tract symptoms
CPT/HCPCS: 36415; 71045; 74018; 74176; 74181; 74330; 78452; 80048; 80053; 80061; 80076; 81001; 82962; 83036; 83605; 83690; 83735; 84100; 84439; 84443; 84484; 85025; 85610; 85730; 87040; 88304; 93005; 93017; 93306; 96374; 96375; 97110; 97116; 97162; 97530; 99285-25

== ENCOUNTER 2017-10-07 22:46 | Emergency (ER) | payer MEDICARE, OTHER | END 2017-10-08 03:22 | disposition left against medical advice (07) | LOC: FTE 22:46 | DX: T50.901A Poisoning by unspecified drugs, medicaments and biological substances, accidental (unintentional), initial encounter (principal); H65.92 Unspecified nonsuppurative otitis media, left ear; Z79.82 Long term (current) use of aspirin; Z79.4 Long term (current) use of insulin; Z79.01 Long term (current) use of anticoagulants; Z95.1 Presence of aortocoronary bypass graft | CPT/HCPCS: 99282 ==